=== PATIENT | male | born 1985 | race Caucasian/White ===

== ENCOUNTER → 2019-02-14 14:29 | Outpatient (CLI) | payer OTHER, SELFPAY ==
[2019-02-14 15:21] LABS: Influenza A and B by PCR Rapid Negative (Negative)
== END ==
PROVIDERS: Visit Provider Family Medicine
DX: J06.9 Acute upper respiratory infection, unspecified (principal)
CPT/HCPCS: 87400; 87502

== ENCOUNTER → 2019-06-29 13:08 | Outpatient (CLI) | payer OTHER, SELFPAY ==
--- NOTE | 2019-06-29 | DI.RAD.S_ITS ---
PROCEDURE: XR CHEST 2V INDICATIONS: COUGH TECHNIQUE: 2 views of the chest were acquired. COMPARISON: None. FINDINGS: Surgical changes and devices: None. Lungs and pleura: Lungs are clear. No pleural effusions or pneumothorax. Mediastinum: Mediastinal contours are normal. Heart size is normal. Bones and chest wall: No suspicious bony abnormalities. Soft tissues appear unremarkable. IMPRESSION: No acute disease Dictated by: Marlon Fraga M.D. on 06/29/2019 at 15:10 Approved by: Marlon Fraga M.D. on 06/29/2019 at 15:11
== END ==
PROVIDERS: PCP Family Medicine; Referring Provider Family Medicine; Visit Provider Family Medicine
DX: R05 Cough (principal); F17.200 Nicotine dependence, unspecified, uncomplicated
CPT/HCPCS: 71046

== ENCOUNTER → 2020-05-08 10:23 | Outpatient (CLI) | payer OTHER, SELFPAY ==
--- NOTE | 2020-05-08 | DI.RAD.S_ITS ---
PROCEDURE: XR FINGER RT MIN 2V INDICATIONS: RIGHT INDEX FINGER PAIN TECHNIQUE: AP hand, 2 views of the index finger(s) acquired. COMPARISON: None. FINDINGS: Bones: There is soft tissue swelling overlying the distal aspect of the right index finger with possible nondisplaced fracture of the distal phalanx, best seen on the lateral view. Remainder of the visualized osseous structures appear intact. No suspicious bony lesions. Soft tissues: No suspicious soft tissue calcifications. IMPRESSION: Possible nondisplaced distal phalanx fracture of the right index finger. Dictated by: Rex Camejo M.D. on 05/08/2020 at 12:35 Approved by: Rxe Camejo M.D. on 05/08/2020 at 12:39
== END ==
PROVIDERS: PCP Family Medicine; Referring Provider Family Medicine; Visit Provider Family Medicine
DX: M79.644 Pain in right finger(s) (principal); M79.89 Other specified soft tissue disorders
CPT/HCPCS: 73140

== ENCOUNTER → 2021-02-05 17:47 | Outpatient (ROUT) | payer OTHER, SELFPAY ==
[2021-02-05 18:08] LABS: COVID19 -Nasal RAPID Negative (Negative)
== END ==
PROVIDERS: PCP Family Medicine; Visit Provider Family Medicine
DX: Z20.822 Contact with and (suspected) exposure to COVID-19 (principal)
CPT/HCPCS: 87635

== ENCOUNTER 2022-09-21 14:23 | Emergency (ER) | payer OTHER, SELFPAY ==
[2022-09-21 14:28] VITALS: BP 124/77; PULSE 79; RESP 16; TEMP 36.6; O2SAT 97; BMI 19.5
--- NOTE | 2022-09-21 14:30 | DI.RAD.S_ITS ---
PROCEDURE: XR TIBIA FUBULA RT 2V INDICATIONS: crush inj/packer fell on leg TECHNIQUE: 2 views of the tibia and fibula were acquired. COMPARISON: None. FINDINGS: Bones: No fractures or dislocations. No suspicious bony lesions. Bony fragmentation of the tibial tubercle. Soft tissues: No suspicious soft tissue calcifications or masses. IMPRESSION: No displaced fracture. 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 Dictated by: Johan Barnard M.D. on 09/21/2022 at 14:41 Approved by: Johan Barnard M.D. on 09/21/2022 at 14:41
--- NOTE | 2022-09-21 14:36 | DI.RAD.S_ITS ---
PROCEDURE: XR PELVIS 1-2V INDICATIONS: crush inj packer fell on pt TECHNIQUE: 1 view(s) of the pelvis acquired. COMPARISON: None. FINDINGS: Bones: No fractures or dislocations. No suspicious bony lesions. Soft tissues: Visualized bowel gas pattern is normal. No suspicious soft tissue calcifications. IMPRESSION: No displaced fracture. Dictated by: Johan Barnard M.D. on 09/21/2022 at 14:42 Approved by: Johan Barnard M.D. on 09/21/2022 at 14:42
--- NOTE | 2022-09-21 15:28 | ED_ITS ---
HPI - Extremity Injury (Lower) General Chief Complaint: Extremity Injury, Lower Stated Complaint: chao fell on leg/crushed injury Time Seen by Provider: 09/21/22 14:40 History of Present Illness HPI Narrative: 37-year-old male nonsmoker with noncontributory medical history presents by EMS for evaluation of a work-related injury just prior to arrival. 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 He has pain in his right hip and knee that is worse with motion and improves with rest. He denies any head neck or back pain. He denies any numbness, tingling or weakness. He has some superficial abras ions and states that his tetanus was updated relatively recently. He denies chest pain or shortness of breath. Related Data Previous Rx's Medication Instructions Recorded ketorolac 10 mg tablet 10 mg PO Q6H PRN pain #14 tabs 09/21/22 Allergies Allergy/AdvReac Type Severity Reaction Status Date / Time No Known Drug Allergies Allergy Verified 09/21/22 16:21 Exam Initial Vital Signs Initial Vital Signs: Vital Signs Temperature 97.8 F 09/21/22 14:28 Pulse Rate 79 09/21/22 14:28 Respiratory Rate 16 09/21/22 14:28 Blood Pressure 124/77 09/21/22 14:28 Pulse Oximetry 97 09/21/22 14:28 Oxygen Delivery Method Room Air 09/21/22 14:28 Course Orders Ordered: Discontinued Medications Ketorolac Tromethamine (Ketorolac 30 Mg/Ml Vial) 15 mg IV NOW ONE Stop: 09/21/22 16:21 Last Admin: 09/21/22 16:31 Dose: 15 mg Documented By: EMERSON Vital Signs Vital signs: Vital Signs - 8 hr 09/21/22 14:28 Temperature 97.8 F Pulse Rate 79 Respiratory Rate 16 Blood Pressure 124/77 Pulse Oximetry 97 Oxygen Delivery Method Room Air MDM - Extremity Injury (Lower) MDM Narrative Medical decision making narrative: [37] year old patient presents with work-related injury of right lower extremity Multiple etiologies for patient's symptoms considered including, but not limited to: [Contusion versus abrasion versus fracture versus other] No prior charts available Primary Historian: patient Imaging reviewed: Chest x-ray, pelvis, hip and right lower extremity imaging all within normal limits and no evidence of fracture or dislocation Patient's symptoms improved over duration of stay with above-stated therapies. History and physical exam are very reassuring and there is no evidence of fracture, dislocation, laceration that requires repair or evidence of compartment syndrome Findings and discharge diagnosis discussed with patient/family followed by verbalization of understanding Return precautions discussed with patient/family whom verbalize understanding of diagnosis and plan Discharge Plan Departure Patient Disposition: Home Clinical Impression: Contusion of knee, right, Abrasion of leg Instructions: DI for Contusion Activity Restrictions/Additional Instructions: *You have been diagnosed with [work-related right knee and tibia injury. As we discussed your history and physical exam are reassuring and imaging would suggest against any fracture or dislocation.] *What to do: *Please continue to take your regular medications as directed. [x ] New medication prescriptions sent to your pharmacy: [ [facility] in [place]] [ ] New medication written as a paper prescription [ ] No new medications given *Please follow up with your primary care provider in 2-3 days, call for an appointment. Let them know you were seen in the Emergency Department and that we ask that you be seen in follow up. We will electronically transmit a record of today's note if your PCP is in our system *Return to Emergency Department if you should have any new, worsening or concerning symptoms, such as [fever greater than 101 F, shaking chills, worsening pain, persistent vomiting or other bothersome symptoms] Prescriptions: New ketorolac 10 mg tablet 10 mg PO Q6H PRN (Reason: pain) Qty: 14 0RF Referrals: Mila Rader MD [Primary Care Provider] - Stand Alone Forms: Patient Portal/API, Work Release Note
[2022-09-21] MEDS: KETOROLAC 30 MG/ML VIAL 15 MG IV (16:31)
[2022-09-21 16:37] VITALS: BP 137/84; PULSE 64; RESP 18; O2SAT 100
== END 2022-09-21 16:42 | disposition home or self-care (01) ==
PROVIDERS: Emergency Provider Emergency Medicine; PCP Family Medicine
DX: S80.01XA Contusion of right knee, initial encounter (principal); S80.811A Abrasion, right lower leg, initial encounter; W20.8XXA Other cause of strike by thrown, projected or falling object, initial encounter; Y92.814 Boat as the place of occurrence of the external cause; Y99.0 Civilian activity done for income or pay
CPT/HCPCS: 72170; 73590; 96374; 99284; J1885